=== PATIENT | female | born 1990 | race Caucasian/White ===

== ENCOUNTER 2020-02-20 22:06 | Inpatient (IN) ==
[2020-02-20 22:41] LABS: Basophils % 0.3 %; Eosinophils % 0.1 %; Hematocrit 36.4 % (35.3-44.9); Hemoglobin 11.6 g/dL (11.5-15.4); Immature Granulocytes % 0.3 % (0-4); Lymphocytes # 2.8 K/mcL (0.6-4.6); Lymphocytes % 25.9 %; Mean Corpuscular HGB Conc 31.9 g/dL (31.6-35.5); Mean Corpuscular Hemoglobin 28.3 pg (28.0-33.3); Mean Corpuscular Volume 88.8 fL (83.0-100.0); Mean Platelet Volume 9.8 fL (9.4-12.4); Monocytes # 0.7 K/mcL (0.0-1.3); Monocytes % 6.2 %; Neutrophils # 7.2 K/mcL (1.6-8.9); Platelet Count 278 K/mcL (140-400); Red Cell Distribution Width 14.6 % (11.5-14.5); Segmented Neutrophils % 67.2 %; White Blood Count 10.7 K/mcL (4.3-11.1)
[2020-02-20 22:55] LABS: Estimated Average Glucose 108 mg/dl; Hemoglobin A1C 5.4 %
[2020-02-20 23:05] LABS: Bacteria,Urine Few per hpf (None-Few); Bilirubin,Urine Negative (Negative); Blood,Urine Negative (Negative); Clarity,Urine Turbid (Clear); Color,Urine Yellow (Yellow); Glucose,Urine (UA) Normal (Normal); Hyaline Casts,Urine Moderate per lpf (None Seen); Ketones,Urine Negative (Negative); Leukocyte Esterase,Urine Negative (Negative); Mucus,Urine Many per lpf (None-Few); Nitrite,Urine Negative (Negative); Protein,Urine 30 mg/dL (Neg-Trace); Specific Gravity,Urine 1.025 (1.010-1.025); Squamous Epithelial Cell,Urine Few per hpf (None-Few); Urobilinogen,Urine Normal (Normal)
[2020-02-20 23:05] LABS: Acetaminophen < 10 mcg/mL (10-20); BUN/Creatinine Ratio 10 (6-26); Blood Urea Nitrogen 7 mg/dL (6-20); Calcium 8.8 mg/dL (8.6-10.3); Carbon Dioxide 22 mEq/L (23-29); Chloride 102 mEq/L (98-107); Cholesterol 158 mg/dL (< 200); Ethanol < 10 mg/dL (Less than 10); Glucose 124 mg/dL (70-105); HDL Cholesterol 52 mg/dL (40-59); LDL Cholesterol,Calculated 78 mg/dL (< 100); Osmolality,Calculated 283 (280-300); Potassium 3.3 mEq/L (3.5-5.1); Salicylate < 2.5 mg/dL (15.0-30.0); Sodium 137 mEq/L (136-145); Triglycerides 141 mg/dL (< 150); eGFR For African Americans > 60 (> 60); eGFR For Non-African Americans > 60 (> 60)
[2020-02-20 23:10] LABS: Amphetamine Screen,Urine Negative ng/mL (Cutoff=1000); Barbiturate Screen,Urine Negative ng/mL (Cutoff=200); Benzodiazepines Screen,Urine Negative ng/mL (Cutoff=200); Cannabinoid Screen,Urine Negative ng/mL (Cutoff = 50); Cocaine Screen,Urine Negative ng/mL (Cutoff= 300); Opiate Screen,Urine Negative ng/mL (Cutoff=300); Phencyclidine Screen,Urine Negative ng/mL (Cutoff=25)
[2020-02-21] MEDS ORDERED: Mag Hydrox/Al Hydrox/Simeth 30 ML UDC PO PRN (00:23)
[2020-02-21] MEDS ORDERED: Haloperidol Lactate 5 MG/ML VIAL IM PRN (00:23)
[2020-02-21] MEDS ORDERED: MOM Conc 10 ML UD.LIQ PO PRN (00:23)
[2020-02-21] MEDS ORDERED: traZODone 50 MG TABLET PO PRN (00:23)
[2020-02-21] MEDS ORDERED: haloperidoL 5 MG TABLET PO PRN (00:23)
[2020-02-21] MEDS ORDERED: Acetaminophen 325 MG TABLET PO PRN (00:23)
[2020-02-21] MEDS ORDERED: *HR* LORazepam 2 MG/ML VIAL IM PRN (00:23)
[2020-02-21] MEDS ORDERED: *HR* LORazepam 1 MG TABLET PO PRN (00:23)
[2020-02-21] MEDS ORDERED: SUMAtriptan succinate 50 MG TABLET PO PRN (09:44)
[2020-02-21] MEDS ORDERED: Ondansetron ODT 4 MG TAB.RAPDIS SL PRN (09:45)
[2020-02-21] MEDS: lamoTRIgine 100 MG TABLET PO SCH ×2 (11:39→21:09)
[2020-02-21] MEDS: hydrOXYzine pamoate 25 MG CAPSULE PO PRN (17:14)
[2020-02-21] MEDS ORDERED: Celecoxib 100 MG CAPSULE PO SCH (21:00)
[2020-02-21] MEDS: traZODone 50 MG TABLET PO SCH (21:09)
[2020-02-21] MEDS: Loratadine 10 MG TABLET PO SCH (21:10)
[2020-02-21] MEDS: ARIPiprazole 5 MG TABLET PO SCH (21:10)
[2020-02-21] MEDS: PARoxetine 20 MG TABLET PO SCH (21:10)
[2020-02-21] MEDS: methIMAzole 5 MG TABLET PO SCH (21:10)
[2020-02-22] MEDS: lamoTRIgine 100 MG TABLET PO SCH ×2 (08:48→21:29)
[2020-02-22] MEDS: hydrOXYzine pamoate 25 MG CAPSULE PO PRN (21:28)
[2020-02-22] MEDS: PARoxetine 20 MG TABLET PO SCH (21:28)
[2020-02-22] MEDS: ARIPiprazole 5 MG TABLET PO SCH (21:28)
[2020-02-22] MEDS: traZODone 50 MG TABLET PO SCH (21:28)
[2020-02-22] MEDS: Loratadine 10 MG TABLET PO SCH (21:29)
[2020-02-22] MEDS: methIMAzole 5 MG TABLET PO SCH (21:29)
[2020-02-23] MEDS: lamoTRIgine 100 MG TABLET PO SCH (09:30)
[2020-02-23 10:30] VITALS: BP 103/66
== END 2020-02-23 13:45 | disposition home or self-care (01) | DRG 753 ==
LOC: EMEROOARM 22:06 → 1ANU 02-21 00:19
PROVIDERS: ADMIT Psychiatry & Neurology Psychiatry; ATTEND Psychiatry & Neurology Psychiatry

== ENCOUNTER 2020-08-19 14:06 | Inpatient (IN) ==
[2020-08-19 14:48] LABS: Bacteria,Urine Few per hpf (None-Few); Bilirubin,Urine Negative (Negative); Blood,Urine Negative (Negative); Clarity,Urine Turbid (Clear); Color,Urine Light-Yellow (Yellow); Glucose,Urine (UA) Normal (Normal); Ketones,Urine Negative (Negative); Leukocyte Esterase,Urine Small (Negative); Mucus,Urine Few per lpf (None-Few); Nitrite,Urine Negative (Negative); PH,Urine 6.5 pH Units (5.0-8.0); Protein,Urine Negative (Neg-Trace); RBC,Urine 0-3 per hpf (0-3); Specific Gravity,Urine 1.016 (1.010-1.025); Squamous Epithelial Cell,Urine Moderate per hpf (None-Few); Urobilinogen,Urine Normal (Normal)
[2020-08-19 15:21] LABS: Amphetamine Screen,Urine Negative ng/mL (Cutoff=1000); Barbiturate Screen,Urine Negative ng/mL (Cutoff=200); Benzodiazepines Screen,Urine Negative ng/mL (Cutoff=200); Cannabinoid Screen,Urine Negative ng/mL (Cutoff = 50); Cocaine Screen,Urine Negative ng/mL (Cutoff= 300); Opiate Screen,Urine Negative ng/mL (Cutoff=300); Phencyclidine Screen,Urine Negative ng/mL (Cutoff=25)
[2020-08-19 16:08] LABS: Basophils % 0.5 %; Eosinophils % 0.1 %; Hematocrit 38.7 % (35.3-44.9); Hemoglobin 11.9 g/dL (11.5-15.4); Immature Granulocytes % 0.4 % (0-4); Lymphocytes # 1.9 K/mcL (0.6-4.6); Lymphocytes % 23.9 %; Mean Corpuscular HGB Conc 30.7 g/dL (31.6-35.5); Mean Corpuscular Hemoglobin 26.8 pg (28.0-33.3); Mean Corpuscular Volume 87.2 fL (83.0-100.0); Mean Platelet Volume 10.3 fL (9.4-12.4); Monocytes # 0.5 K/mcL (0.0-1.3); Monocytes % 6.2 %; Neutrophils # 5.6 K/mcL (1.6-8.9); Platelet Count 291 K/mcL (140-400); Red Blood Count 4.44 M/mcL (3.82-4.97); Red Cell Distribution Width 14.9 % (11.5-14.5); Segmented Neutrophils % 68.9 %; White Blood Count 8.1 K/mcL (4.3-11.1)
[2020-08-19 16:32] LABS: Acetaminophen < 10 mcg/mL (10-20); Alanine Aminotransferase 14 Units/L (7-52); Albumin/Globulin Ratio 1.3 (1.1-2.2); Alkaline Phosphatase 112 Units/L (34-104); Aspartate Amino Transferase 11 Units/L (13-39); BUN/Creatinine Ratio 11 (6-26); Bilirubin,Direct 0.1 mg/dL (0.0-0.2); Bilirubin,Indirect 0.3 mg/dL (0.0-1.0); Bilirubin,Total 0.4 mg/dL (0.3-1.0); Blood Urea Nitrogen 8 mg/dL (6-20); Calcium 9.1 mg/dL (8.6-10.3); Carbon Dioxide 26 mEq/L (23-29); Chloride 106 mEq/L (98-107); Chol/HDL Ratio 4.3 (0-4.9); Cholesterol 145 mg/dL (< 200); Ethanol < 10 mg/dL (Less than 10); Glucose 103 mg/dL (70-105); HDL Cholesterol 34 mg/dL (40-59); LDL Cholesterol,Calculated 83 mg/dL (< 100); Osmolality,Calculated 285 (280-300); Salicylate < 2.5 mg/dL (15.0-30.0); Sodium 138 mEq/L (136-145); Triglycerides 140 mg/dL (< 150); eGFR For African Americans > 60 (> 60); eGFR For Non-African Americans > 60 (> 60)
[2020-08-19 16:40] LABS: Estimated Average Glucose 114 mg/dl; Hemoglobin A1C 5.6 %
[2020-08-19] MEDS ORDERED: Acetaminophen 325 MG TABLET PO PRN (20:13)
[2020-08-19] MEDS ORDERED: *HR* LORazepam 2 MG/ML VIAL IM PRN (20:13)
[2020-08-19] MEDS ORDERED: Haloperidol Lactate 5 MG/ML VIAL IM PRN (20:13)
[2020-08-19] MEDS ORDERED: MOM Conc 10 ML UD.LIQ PO PRN (20:13)
[2020-08-19] MEDS ORDERED: Mag Hydrox/Al Hydrox/Simeth 30 ML UDC PO PRN (20:13)
[2020-08-19] MEDS ORDERED: haloperidoL 5 MG TABLET PO PRN (20:13)
[2020-08-19] MEDS ORDERED: *HR* LORazepam 1 MG TABLET PO PRN (20:13)
[2020-08-19] MEDS: hydrOXYzine pamoate 25 MG CAPSULE PO PRN (21:42)
[2020-08-19] MEDS: traZODone 50 MG TABLET PO PRN (21:42)
[2020-08-20] MEDS: BuPROPion XL (24 HR) 150 MG TABLET PO SCH (11:27)
[2020-08-20] MEDS: Loratadine 10 MG TABLET PO SCH (11:27)
[2020-08-20] MEDS: traZODone 50 MG TABLET PO SCH (20:19)
[2020-08-21] MEDS: traZODone 50 MG TABLET PO PRN (01:45)
[2020-08-21] MEDS: hydrOXYzine pamoate 25 MG CAPSULE PO PRN ×2 (01:45→12:35)
[2020-08-21] MEDS: Loratadine 10 MG TABLET PO SCH (08:46)
[2020-08-21] MEDS: BuPROPion XL (24 HR) 150 MG TABLET PO SCH (08:46)
[2020-08-21] MEDS: traZODone 50 MG TABLET PO SCH (20:56)
[2020-08-22] MEDS: Loratadine 10 MG TABLET PO SCH (08:11)
[2020-08-22] MEDS: BuPROPion XL (24 HR) 150 MG TABLET PO SCH (08:12)
[2020-08-22 08:20] VITALS: BP 93/61
[2020-08-22] MEDS: hydrOXYzine pamoate 25 MG CAPSULE PO PRN (09:43)
== END 2020-08-22 13:15 | disposition home or self-care (01) | DRG 751 ==
LOC: EMEROOARM 14:06 → 1ANU 19:35
PROVIDERS: ADMIT Psychiatry & Neurology Psychiatry; ATTEND Psychiatry & Neurology Psychiatry

== ENCOUNTER 2021-01-01 21:09 | Inpatient (IN) ==
[2021-01-01 21:53] LABS: Basophils # 0.1 K/mcL (0.0-0.2); Basophils % 0.4 %; Eosinophils % 0.2 %; Hematocrit 40.4 % (35.3-44.9); Hemoglobin 12.6 g/dL (11.5-15.4); Immature Granulocytes % 0.5 % (0-4); Lymphocytes # 4.8 K/mcL (0.6-4.6); Mean Corpuscular HGB Conc 31.2 g/dL (31.6-35.5); Mean Corpuscular Hemoglobin 27.9 pg (28.0-33.3); Mean Corpuscular Volume 89.6 fL (83.0-100.0); Mean Platelet Volume 9.8 fL (9.4-12.4); Monocytes # 0.9 K/mcL (0.0-1.3); Monocytes % 6.6 %; Neutrophils # 8.2 K/mcL (1.6-8.9); Platelet Count 310 K/mcL (140-400); Red Blood Count 4.51 M/mcL (3.82-4.97); Red Cell Distribution Width 14.7 % (11.5-14.5); Segmented Neutrophils % 58.3 %; White Blood Count 14.1 K/mcL (4.3-11.1)
[2021-01-01 22:03] LABS: Amphetamine Screen,Urine Negative ng/mL (Cutoff=1000); Barbiturate Screen,Urine Negative ng/mL (Cutoff=200); Benzodiazepines Screen,Urine Negative ng/mL (Cutoff=200); Cannabinoid Screen,Urine Negative ng/mL (Cutoff = 50); Cocaine Screen,Urine Negative ng/mL (Cutoff= 300); Opiate Screen,Urine Negative ng/mL (Cutoff=300); Phencyclidine Screen,Urine Negative ng/mL (Cutoff=25)
[2021-01-01 22:06] LABS: Platelet Estimate Normal (Normal); Reactive Lymphocytes Present (Not Present)
[2021-01-01 22:08] LABS: Bacteria,Urine Few per hpf (None-Few); Bilirubin,Urine Negative (Negative); Blood,Urine Negative (Negative); Clarity,Urine Turbid (Clear); Color,Urine Light-Yellow (Yellow); Glucose,Urine (UA) Normal (Normal); Ketones,Urine Negative (Negative); Leukocyte Esterase,Urine Moderate (Negative); Mucus,Urine Few per lpf (None-Few); Nitrite,Urine Negative (Negative); Protein,Urine Trace mg/dL (Neg-Trace); RBC,Urine 0-3 per hpf (0-3); Specific Gravity,Urine 1.014 (1.010-1.025); Squamous Epithelial Cell,Urine Moderate per hpf (None-Few); Urobilinogen,Urine Normal (Normal)
[2021-01-01 22:13] LABS: BUN/Creatinine Ratio 13 (6-26); Blood Urea Nitrogen 11 mg/dL (6-20); Calcium 8.9 mg/dL (8.6-10.3); Carbon Dioxide 21 mEq/L (23-29); Chloride 108 mEq/L (98-107); Cholesterol 167 mg/dL (< 200); Glucose 117 mg/dL (70-105); Osmolality,Calculated 284 (280-300); Potassium 3.1 mEq/L (3.5-5.1); Sodium 137 mEq/L (136-145); Triglycerides 207 mg/dL (< 150); eGFR For African Americans > 60 (> 60); eGFR For Non-African Americans > 60 (> 60)
[2021-01-01 22:14] LABS: Acetaminophen < 10 mcg/mL (10-20); Chol/HDL Ratio 5.2 (0-4.9); Ethanol < 10 mg/dL (Less than 10); HDL Cholesterol 32 mg/dL (40-59); LDL Cholesterol,Calculated 94 mg/dL (< 100); Salicylate < 2.5 mg/dL (15.0-30.0)
[2021-01-01] MEDS ORDERED: Potassium Chloride Elixir 20 MEQ/15 ML UDC PO ONE (22:15)
[2021-01-01 22:17] LABS: Estimated Average Glucose 108 mg/dl; Hemoglobin A1C 5.4 %
[2021-01-01 22:34] LABS: Thyroid Stimulating Hormone 4.094 mcIU/mL (0.340-5.600)
[2021-01-02] MEDS ORDERED: haloperidoL 5 MG TABLET PO PRN (02:29)
[2021-01-02] MEDS ORDERED: hydrOXYzine pamoate 25 MG CAPSULE PO PRN ×2 (02:29→13:21)
[2021-01-02] MEDS ORDERED: Haloperidol Lactate 5 MG/ML VIAL IM PRN (02:29)
[2021-01-02] MEDS ORDERED: *HR* LORazepam 1 MG TABLET PO PRN (02:29)
[2021-01-02] MEDS ORDERED: traZODone 50 MG TABLET PO PRN (02:29)
[2021-01-02] MEDS ORDERED: *HR* LORazepam 2 MG/ML VIAL IM PRN (02:29)
[2021-01-02] MEDS: Acetaminophen 325 MG TABLET PO PRN (03:40)
[2021-01-02] MEDS ORDERED: Mag Hydrox/Al Hydrox/Simeth 30 ML UDC PO PRN (18:33)
[2021-01-02] MEDS: Topiramate 25 MG TABLET PO SCH (20:57)
[2021-01-02] MEDS ORDERED: CELECOXIB 50 MG PO SCH (21:00)
[2021-01-03] MEDS: Mag Hydrox/Al Hydrox/Simeth 30 ML UDC PO SCH ×4 (00:23→21:14)
[2021-01-03] MEDS: Topiramate 25 MG TABLET PO SCH ×2 (08:48→20:41)
[2021-01-03] MEDS: BuPROPion XL (24 HR) 150 MG TABLET PO SCH (08:48)
[2021-01-03] MEDS: PARoxetine 20 MG TABLET PO SCH (08:48)
[2021-01-03] MEDS: modafiniL 100 MG TABLET PO SCH ×2 (08:49→16:39)
[2021-01-03] MEDS: Acetaminophen 325 MG TABLET PO PRN ×2 (09:31→17:30)
[2021-01-03] MEDS: traZODone 50 MG TABLET PO PRN (22:35)
[2021-01-04] MEDS: Mag Hydrox/Al Hydrox/Simeth 30 ML UDC PO SCH ×4 (01:43→18:12)
[2021-01-04] MEDS: BuPROPion XL (24 HR) 150 MG TABLET PO SCH (09:13)
[2021-01-04] MEDS: Topiramate 25 MG TABLET PO SCH ×2 (09:13→21:50)
[2021-01-04] MEDS: PARoxetine 20 MG TABLET PO SCH (09:13)
[2021-01-04] MEDS: modafiniL 100 MG TABLET PO SCH ×2 (09:13→14:48)
[2021-01-04] MEDS: Acetaminophen 325 MG TABLET PO PRN (13:39)
[2021-01-04] MEDS: traZODone 50 MG TABLET PO PRN (21:50)
[2021-01-05] MEDS: Mag Hydrox/Al Hydrox/Simeth 30 ML UDC PO SCH ×4 (00:29→18:22)
[2021-01-05] MEDS: modafiniL 100 MG TABLET PO SCH ×2 (09:01→11:26)
[2021-01-05] MEDS: Topiramate 25 MG TABLET PO SCH ×2 (09:01→20:44)
[2021-01-05] MEDS: BuPROPion XL (24 HR) 150 MG TABLET PO SCH (09:01)
[2021-01-05] MEDS: PARoxetine 20 MG TABLET PO SCH (09:02)
[2021-01-05] MEDS: Acetaminophen 325 MG TABLET PO PRN ×2 (11:26→20:48)
[2021-01-05 14:55] LABS: Estimated Average Glucose 105 mg/dl; Hemoglobin A1C 5.3 %
[2021-01-05] MEDS: traZODone 50 MG TABLET PO PRN (20:44)
[2021-01-06] MEDS: Mag Hydrox/Al Hydrox/Simeth 30 ML UDC PO SCH ×3 (03:36→11:57)
[2021-01-06] MEDS: modafiniL 100 MG TABLET PO SCH ×2 (06:54→11:55)
[2021-01-06] MEDS: BuPROPion XL (24 HR) 150 MG TABLET PO SCH (08:50)
[2021-01-06] MEDS: Topiramate 25 MG TABLET PO SCH (08:51)
[2021-01-06] MEDS: PARoxetine 20 MG TABLET PO SCH (08:51)
[2021-01-06 08:56] VITALS: BP 109/73
[2021-01-06] MEDS: Acetaminophen 325 MG TABLET PO PRN (12:58)
== END 2021-01-06 13:40 | disposition home or self-care (01) | DRG 751 ==
LOC: EMEROOARM 21:09 → 1ANU 01-02 02:26
PROVIDERS: ADMIT Psychiatry & Neurology Forensic Psychiatry; ATTEND Psychiatry & Neurology Forensic Psychiatry

== ENCOUNTER 2021-03-19 11:30 | Observation (INO) ==
[2021-03-19 13:22] LABS: Amphetamine Screen,Urine Negative ng/mL (Cutoff=1000); Barbiturate Screen,Urine Negative ng/mL (Cutoff=200); Benzodiazepines Screen,Urine Negative ng/mL (Cutoff=200); Cannabinoid Screen,Urine Negative ng/mL (Cutoff = 50); Cocaine Screen,Urine Negative ng/mL (Cutoff= 300); Opiate Screen,Urine Negative ng/mL (Cutoff=300); Phencyclidine Screen,Urine Negative ng/mL (Cutoff=25)
[2021-03-19 13:47] LABS: Bacteria,Urine Few per hpf (None-Few); Bilirubin,Urine Negative (Negative); Blood,Urine Negative (Negative); Clarity,Urine Turbid (Clear); Color,Urine Light-Yellow (Yellow); Glucose,Urine (UA) Normal (Normal); Ketones,Urine Negative (Negative); Leukocyte Esterase,Urine Large (Negative); Nitrite,Urine Negative (Negative); Protein,Urine Negative (Neg-Trace); Specific Gravity,Urine 1.009 (1.010-1.025); Squamous Epithelial Cell,Urine Moderate per hpf (None-Few); Urobilinogen,Urine Normal (Normal)
[2021-03-19 14:19] LABS: Basophils % 0.1 %; Eosinophils % 0.1 %; Hematocrit 37.2 % (35.3-44.9); Hemoglobin 12.2 g/dL (11.5-15.4); Immature Granulocytes % 0.3 % (0-4); Lymphocytes # 1.8 K/mcL (0.6-4.6); Lymphocytes % 24.2 %; Mean Corpuscular HGB Conc 32.8 g/dL (31.6-35.5); Mean Corpuscular Hemoglobin 29.6 pg (28.0-33.3); Mean Corpuscular Volume 90.3 fL (83.0-100.0); Mean Platelet Volume 9.8 fL (9.4-12.4); Monocytes # 0.4 K/mcL (0.0-1.3); Monocytes % 5.8 %; Neutrophils # 5.3 K/mcL (1.6-8.9); Platelet Count 229 K/mcL (140-400); Red Blood Count 4.12 M/mcL (3.82-4.97); Red Cell Distribution Width 14.3 % (11.5-14.5); Segmented Neutrophils % 69.5 %; White Blood Count 7.6 K/mcL (4.3-11.1)
[2021-03-19 14:26] LABS: INR 1.2; Prothrombin Time 13.5 Seconds (9.4-12.1)
[2021-03-19 14:29] LABS: Activated Partial Thrombo Time 31.8 Seconds (26.0-36.0)
[2021-03-19 14:58] LABS: Troponin I < 0.03 ng/mL (< 0.04)
[2021-03-19 14:59] LABS: Alanine Aminotransferase 15 Units/L (7-52); Albumin 3.9 g/dL (3.5-5.7); Albumin/Globulin Ratio 1.4 (1.1-2.2); Alkaline Phosphatase 95 Units/L (34-104); Aspartate Amino Transferase 13 Units/L (13-39); BUN/Creatinine Ratio 9 (6-26); Bilirubin,Direct 0.1 mg/dL (0.0-0.2); Bilirubin,Indirect 0.4 mg/dL (0.0-1.0); Bilirubin,Total 0.5 mg/dL (0.3-1.0); Blood Urea Nitrogen 7 mg/dL (6-20); Calcium 9.1 mg/dL (8.6-10.3); Carbon Dioxide 20 mEq/L (23-29); Chloride 109 mEq/L (98-107); Ethanol < 10 mg/dL (Less than 10); Globulin 2.8 g/dL (2.4-3.5); Glucose 75 mg/dL (70-105); Osmolality,Calculated 283 (280-300); Potassium 3.7 mEq/L (3.5-5.1); Sodium 138 mEq/L (136-145); Total Protein 6.7 g/dL (6.4-8.9); eGFR For African Americans > 60 (> 60); eGFR For Non-African Americans > 60 (> 60)
[2021-03-19] MEDS ORDERED: cefTRIAXone 1,000 MG in Water for inj. (sterile) 10 ML IVP ONE (16:36)
[2021-03-19] MEDS ORDERED: Mag Hydrox/Al Hydrox/Simeth 30 ML UDC PO PRN (17:25)
[2021-03-19] MEDS ORDERED: Ondansetron ODT 4 MG TAB.RAPDIS SL PRN (17:25)
[2021-03-19] MEDS ORDERED: MOM Conc 10 ML UD.LIQ PO PRN (17:25)
[2021-03-19] MEDS ORDERED: Naloxone 0.4 MG/ML INJ IVP PRN (17:25)
[2021-03-19] MEDS ORDERED: Gadolinium Contrast Agent (WT Based) IV PRN (17:41)
[2021-03-19] MEDS ORDERED: Isovue-370 500 ML BOTTLE IVP ONE (17:41)
[2021-03-19] MEDS ORDERED: Perflutren Lipid Microsphere 1.3 ML in 0.9 % Sodium Chloride 8.7 ML IVP PRN (17:43)
[2021-03-19] MEDS ORDERED: GADOBUTROL 30 MMOL/30 ML VIAL IVP ONE (18:18)
[2021-03-19 20:42] LABS: ABG Base Excess -5 mEq/L (-2 to 3); ABG HCO3 19 mEq/L (21-27); ABG Oxygen Saturation 98 % (95-98); ABG PCO2 33 mmHg (35-45); ABG PH 7.37 pH Units (7.32-7.45); ABG PO2 107 mmHg (85-104); ABG TCO2 20 mEq/L (20-26)
[2021-03-19] MEDS: Ibuprofen 400 MG TABLET PO PRN (21:42)
[2021-03-19] MEDS: Melatonin 3 MG TABLET PO PRN (21:42)
[2021-03-20 01:22] LABS: Hematocrit 37.9 % (35.3-44.9); Hemoglobin 12.6 g/dL (11.5-15.4); Mean Corpuscular HGB Conc 33.2 g/dL (31.6-35.5); Mean Corpuscular Hemoglobin 30.1 pg (28.0-33.3); Mean Corpuscular Volume 90.7 fL (83.0-100.0); Platelet Count 225 K/mcL (140-400); Red Blood Count 4.18 M/mcL (3.82-4.97); Red Cell Distribution Width 14.3 % (11.5-14.5); White Blood Count 8.4 K/mcL (4.3-11.1)
[2021-03-20 04:53] LABS: Alanine Aminotransferase 17 Units/L (7-52); Albumin 3.7 g/dL (3.5-5.7); Albumin/Globulin Ratio 1.3 (1.1-2.2); Alkaline Phosphatase 91 Units/L (34-104); Aspartate Amino Transferase 16 Units/L (13-39); BUN/Creatinine Ratio 7 (6-26); Bilirubin,Total 0.5 mg/dL (0.3-1.0); Blood Urea Nitrogen 6 mg/dL (6-20); Calcium 8.9 mg/dL (8.6-10.3); Carbon Dioxide 20 mEq/L (23-29); Chloride 107 mEq/L (98-107); Globulin 2.9 g/dL (2.4-3.5); Glucose 98 mg/dL (70-105); Osmolality,Calculated 282 (280-300); Potassium 3.6 mEq/L (3.5-5.1); Sodium 137 mEq/L (136-145); Total Protein 6.6 g/dL (6.4-8.9); eGFR For African Americans > 60 (> 60); eGFR For Non-African Americans > 60 (> 60)
[2021-03-20] MEDS ORDERED: SUMAtriptan succinate 50 MG TABLET PO PRN (13:32)
[2021-03-20] MEDS ORDERED: hydrOXYzine pamoate 25 MG CAPSULE PO PRN (13:32)
[2021-03-20] MEDS ORDERED: Famotidine 20 MG TABLET PO PRN (13:32)
[2021-03-20] MEDS ORDERED: traZODone 50 MG TABLET PO PRN (13:32)
[2021-03-20] MEDS: Sucralfate 1 GM TABLET PO SCH ×2 (15:36→20:20)
[2021-03-20] MEDS: Ibuprofen 400 MG TABLET PO PRN (15:36)
[2021-03-20] MEDS: Topiramate 25 MG TABLET PO SCH (20:20)
[2021-03-20] MEDS: Melatonin 3 MG TABLET PO PRN (20:20)
[2021-03-21] MEDS ORDERED: PARoxetine 20 MG TABLET PO SCH (09:00)
[2021-03-21] MEDS ORDERED: Loratadine 10 MG TABLET PO SCH (09:00)
[2021-03-21] MEDS ORDERED: BuPROPion XL (24 HR) 150 MG TABLET PO SCH ×2 (09:00)
[2021-03-21] MEDS: modafiniL 100 MG TABLET PO SCH ×2 (09:31→12:27)
[2021-03-21] MEDS: Topiramate 25 MG TABLET PO SCH ×2 (09:31→20:27)
[2021-03-21] MEDS: Sucralfate 1 GM TABLET PO SCH ×4 (09:31→20:27)
[2021-03-21 22:37] VITALS: O2SAT 96
[2021-03-22 06:45] VITALS: BP 95/60; PULSE 60; TEMP 97.9
== END 2021-03-22 11:25 | disposition home or self-care (01) ==
LOC: 3BNU 11:30 → EMEROOARM 11:30 → SUATTDRO 17:03 → 3BNU 17:49
PROVIDERS: ADMIT General Practice; ATTEND Registered Nurse